=== PATIENT | female | born 2000 | race Two or more races ===

== ENCOUNTER 2021-03-27 14:58 | Emergency (ER) | payer OTHER, SELFPAY ==
[2021-03-27 15:08] VITALS: BP 119/48; PULSE 86; RESP 18; TEMP 37.2; O2SAT 100; BMI 20.2
--- NOTE | 2021-03-27 15:54 | ED.PSYCH ---
HPI - Psych General Chief Complaint: Psychiatric Symptoms Stated Complaint: maryam cavazos Time Seen by Provider: 03/27/21 15:49 Source: patient and old records reviewed Mode of arrival: ambulatory Limitations: no limitations History of Present Illness MD complaint: suicidal ideation and feels depressed Onset (ago): week(s) (1) Duration: getting worse History of same: Yes Relieving factors: none Exacerbating factors: none Associated psychiatric symptoms: depression and suicidal ideation Associated symptoms: denies other symptoms If self harm: admits thoughts of self harm and has acted on plan (attempted to take motrin but threw it up 3 days ago, then tried to take excedrin and allergy pills, her aunt also caught her trying to take the aunt's unknown pills and stopped her) Related Data Home Medications Medication Instructions Recorded Confirmed No Known Home Meds 03/27/21 03/27/21 Allergies Allergy/AdvReac Type Severity Reaction Status Date / Time nickel Allergy Rash Verified 03/27/21 15:21 Review of Systems Review of Systems: Constitutional : No Fever, No Chills ENT/Mouth : No Ear Pain, No Nasal Congestion, No sore throat Eyes: No Eye Pain, No Swelling, No Redness Cardiovascular : No Chest Pain, No SOB Respiratory : No Cough, No Sputum, No Dyspnea Gastrointestinal : No Nausea, No Vomiting, No Diarrhea, No Hematochezia, No Melena Genitourinary : No Dysuria, No Urinary Frequency, No Hematuria Musculoskeletal : No Myalgias Skin : No Skin Lesions, No rash Neuro : No Weakness, No Numbness, No Paresthesias, No Dizziness, No Headache Psych : positive Anxiety, positive Depression, positive SI no HI Heme/Lymph: No Lymphadenopathy Endocrine : No Polyuria, No Polydipsia All other systems reviewed and are negative [facility] Past Medical History Attestation statement: The following information was validated with the patient. 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 Oriented X3. No acute distress. Eyes: Pupils equal, round and reactive to light. ENT: Pharynx normal. Neck: Normal inspection. Neck supple. CVS: Normal heart rate and rhythm. Pulses normal. Respiratory: No respiratory distress. Breath sounds normal. Abdomen: Soft and nontender. Skin: Skin warm and dry. Normal skin color. Normal skin turgor. Extremities: No lower extremity edema. No calf ttp Neuro: Oriented X 3. No motor deficit. No sensory deficit. CN2-12 intact Psych: pos SI, calm and cooperative Course Course Course Narrative: signed out pending workup MDM - Psych MDM Narrative Medical decision making narrative: 20 yo female with depression here with c/o SI and plans to overdose on pills with some insignificant ingestions this week - will need labs, tox workup once medically cleared [facility] consult Discharge Plan Discharge Clinical Impression: Depression, Suicidal ideation Prescriptions: No Action No Known Home Meds RF: 0
[2021-03-27 16:16] LABS: Amphetamine Screen Urine Not Detected (Not Detect); Barbiturates, Urine Not Detected (Not Detect); Benzodiazepines Screen Urine Not Detected (Not Detect); Cannabinoid Screen Urine POSITIVE (Not Detect); Cocaine Screen Urine Not Detected (Not Detect); Fentanyl, urine Not Detected (Not Detect); Opiate Screen Urine Not Detected (Not Detect); Phencyclidine Screen Urine Not Detected (Not Detect)
--- NOTE | 2021-03-27 16:32 | PHA.MEDREC ---
Pharmacy Consult ? Medication Reconciliation Pharmacy has reviewed the medication reconciliation complete by nursing staff. Jaja Anaya, MaríaD
[2021-03-27 16:34] LABS: MANUAL DIFF FLAG NO
[2021-03-27 16:40] LABS: Basophils Percent Auto 0.4 % (0-2); Eosinophils Absolute Auto 0.1 X10*3/uL (0.0-0.4); Eosinophils Percent Auto 1.7 % (0-4); Hematocrit 31.7 % (37.0-47.0); Hemoglobin 10.2 g/dl (12.0-16.0); Imm Gran Abs Auto 0.01 X10*3/uL (0.00-0.03); Imm Gran Pct Auto 0.2 % (0.0-0.4); Lymphocytes Absolute Auto 1.9 X10*3/uL (1.2-4.9); Lymphocytes Percent Auto 35.3 % (20-40); Mean Corpuscular HGB Conc 32.2 g/dl (31.0-35.0); Mean Corpuscular Hemoglobin 28.9 pg (27.0-33.0); Mean Corpuscular Volume 89.8 fL (80.0-98.0); Mean Platelet Volume 10.8 fL (9.4-12.3); Monocytes Absolute Auto 0.5 X10*3/uL (0.1-1.2); Neutrophils Absolute Auto 2.8 x10*3/uL (2.0-8.3); Neutrophils Percent Auto 52.4 % (45-73); Platelet Count 251 X10*3/uL (160-400); Red Blood Count 3.53 X10*6/uL (4.20-5.50); White Blood Count 5.4 X10*3/uL (4.8-10.8)
[2021-03-27 16:48] LABS: COVID-19 Test Negative (Negative)
[2021-03-27 16:49] LABS: Ethanol < 10 mg/dL
[2021-03-27 17:03] LABS: Salicylate < 5.0 mg/dL (15-30)
[2021-03-27 17:17] LABS: Acetaminophen LAB < 1 mcg/mL (<30); Alanine Aminotransferase 12 U/L (0-31); Albumin Level 3.9 g/dL (3.5-5.0); Alkaline Phosphatase 55 U/L (39-117); Anion Gap 10 (12-20); Aspartate Amino Transferase 15 U/L (5-31); Bilirubin Total 0.3 mg/dL (0.0-1.0); Blood Urea Nitrogen 18 mg/dL (9-16); Calcium 8.6 mg/dL (8.4-10.2); Carbon Dioxide 25 mmol/L (22-29); Chloride 110 mmol/L (96-108); Estimated Glomerular Filt Rate > 60; Glucose Random 87 mg/dL (60-115); Potassium 4.8 mmol/L (3.3-5.1); Sodium 140 mmol/L (135-145); Total Protein 6.7 g/dL (6.5-8.0)
[2021-03-28 01:21] LABS: Appearance Urine CLEAR; Color Urine YELLOW; Glucose Urine UA NEG (NEG); Leukocyte Esterase Urine NEG (NEG); Nitrite Urine NEG (NEG); Specific Gravity - Urine >= 1.030 (1.005-1.025); Urine Blood NEG (NEG); Urine Ketones NEG (NEG); Urine Protein 1+ MG/DL (NEG-TRACE)
[2021-03-28 01:24] LABS: UPreg QC Valid YES; Urine Pregnancy NEGATIVE (NEGATIVE)
[2021-03-28 01:45] LABS: Bacteria Urine TRACE /LPF; Calcium Oxalate Crystals Urine 3+ /LPF; Mucus Urine 4+ /LPF; RBC Urine 0 /HPF (0); Squamous Epithelial Cell Urine TRACE /LPF; WBC Urine 0-2 /HPF (0-4)
[2021-03-28 02:10] VITALS: BP 95/61; PULSE 63; RESP 15; TEMP 37.1; O2SAT 99
--- NOTE | 2021-03-28 05:32 | PC.NURSE ---
Patient slept through the night, no distress observed/reported, behavior appropriate, patient is currently not on any medication, contracted for the safety, appetite good, VSS, disposition per [facility] is section 12 inpatient bed search, will continue to monitor.
--- NOTE | 2021-03-28 08:12 | PC.NURSE ---
patient appears to remain at rest at present, respirations are even and unlabored, patient appears in no distress.
--- NOTE | 2021-03-28 09:45 | PC.NURSE ---
mother called to inquire about patient, asked about being able to bring a sandwich
[2021-03-28 10:08] VITALS: BP 95/52; PULSE 65; TEMP 37.1; O2SAT 99
[2021-03-28] MEDS: hydrOXYzine HCL 10 MG TABLET PO ×2 (10:22→15:35)
--- NOTE | 2021-03-28 13:53 | MHC.CARE ---
[place] for [place].
[2021-03-28] MEDS: LORazepam 1 MG TABLET 2 MG PO (22:36)
[2021-03-28 22:40] VITALS: BP 114/67; PULSE 57; RESP 16; O2SAT 100
[2021-03-28 23:34] VITALS: BP 88/54; PULSE 65; RESP 15; TEMP 37.1; O2SAT 100
--- NOTE | 2021-03-29 05:25 | PC.NURSE ---
Patient slept through the night, no distress observed/reported, patient received Ativan 2 mg for anxiety and restlessness with + effect, behavior appropriate, medication compliant, disposition is section 12 inpatient bed search, appetite good, elimination intact, contracted for the safety, will continue to monitor.
--- NOTE | 2021-03-29 07:00 | PC.NURSE ---
patient appears to remain asleep at present with even unlabored breaths, patient appears in no distress
[2021-03-29 10:04] VITALS: BP 104/54; PULSE 72; TEMP 37.5; O2SAT 100
[2021-03-29] MEDS: hydrOXYzine HCL 25 MG TABLET PO (10:05)
[2021-03-29] MEDS: LORazepam 1 MG TABLET PO (11:40)
--- NOTE | 2021-03-29 18:30 | PC.NURSE ---
client after brother ? left from visit, asked appropriate questions regarding when she may be notified regarding bed availability. t/w informed client we get notified at varying times through the day.
[2021-03-29] MEDS: LORazepam 1 MG TABLET 2 MG PO (22:20)
--- NOTE | 2021-03-30 06:03 | PC.NURSE ---
Patient slept through the night, + effect from Ativan 2 mg which she received before going to bed at 2230, no distress observed/reported, appetite good, elimination intact, behavior appropriate, medication compliant, disposition is section 12 inpatient bed search, will continue to monitor.
--- NOTE | 2021-03-30 07:49 | PC.NURSE ---
patient appears tp remain asleep at present, respirations are even and unlabored, patient appears in no distress
--- NOTE | 2021-03-30 10:06 | MHC.CARE ---
Updated patient that a bed was found for her at [facility]. Explained that she will be transported by ambulance to the facility which is about 1 hour away, her mother can visit here before she leaves.
[2021-03-30 10:17] VITALS: BP 107/53; PULSE 71; RESP 17; TEMP 37.1; O2SAT 100
== END 2021-03-30 15:03 ==
PROVIDERS: Emergency Provider Emergency Medicine
DX: F32.A Depression, unspecified (principal); R45.851 Suicidal ideations; F41.9 Anxiety disorder, unspecified; F12.90 Cannabis use, unspecified, uncomplicated; Z20.822 Contact with and (suspected) exposure to COVID-19
CPT/HCPCS: 36415; 80053; 80143; 80179; 80307; 81001; 81025; 82077; 85025; 87635; 99285